=== PATIENT | female | born 1945 | race Caucasian/White ===

== ENCOUNTER 2019-02-22 01:21 | Emergency (ER) | payer MEDICARE, OTHER ==
[2019-02-22 01:51] LABS: Bilirubin Negative (Negative); Blood, Urine Large (Negative); Glucose, Urine (Dipstick) Negative (Negative); Leukocyte Moderate (Negative); Nitrite Negative (Negative); Protein, Urine (Dipstick) 30 mg/dL (Neg-Trace); Urobilinogen 0.2 mg/dL (0.2-1.0); pH, Urine 8.5 (5.0-9.0)
[2019-02-22 01:52] LABS: Clarity Slightly Cloudy (Clear)
[2019-02-22 02:01] LABS: Bacteria/HPF Rare-Few HPF (None Seen); Hyaline Casts/LPF NONE SEEN LPF (0-3 Hyaline); Squamous Epithelial 0-3 HPF (0-3)
[2019-02-22] MEDS ORDERED: cefTRIAXone\\ROCEPHIN 1 GM VIAL ONE (02:05)
[2019-02-22] MEDS ORDERED: Lidocaine 1% MPF 2 ML VIAL ONE (02:05)
== END 2019-02-22 02:47 | disposition home or self-care (01) ==
LOC: SCSER 01:21 → EEVIPCON 01:21 → SCSER 02:47
DX: N39.0 Urinary tract infection, site not specified (principal); K21.9 Gastro-esophageal reflux disease without esophagitis; Z79.899 Other long term (current) drug therapy
CPT/HCPCS: 81003; 81015; 87086; 96372; J0696; J2001